=== PATIENT | male | born 1970 | race Caucasian/White ===

== ENCOUNTER 2018-04-12 22:26 | Observation (INO) | payer OTHER, SELFPAY ==
[2018-04-12 22:27] VITALS: BP 163/109; PULSE 95; RESP 18; TEMP 36.4; O2SAT 97; BMI 30.9
--- NOTE | 2018-04-12 22:35 | EKG12_ITS ---
Test Reason : CP/OTHER Blood Pressure : / mmHG Vent. Rate : 089 BPM Atrial Rate : 089 BPM P-R Int : 132 ms QRS Dur : 090 ms QT Int : 366 ms P-R-T Axes : 035 044 023 degrees QTc Int : 445 ms Normal sinus rhythm Normal ECG Confirmed by ELIZABETH SALGADO, SHAMA ([id number]), assignment editor YANI CUEVA ([id number]) on 04/17/2018 9:04:56 AM Referred By: DR GIVENS Confirmed By:SHAMA JOHNSON MD
--- NOTE | 2018-04-12 22:35 | RAD_ITS ---
STUDY: X-RAY CHEST REASON FOR EXAM: Male, 47 years old. Dizziness TECHNIQUE: Single AP portable view of the chest. COMPARISON: None. FINDINGS: EKG leads overlie the chest The lungs are clear and expanded. There is no demonstrated pleural abnormality. Normal size heart. Normal mediastinum and teto. Normal visualized pulmonary arteries. Normal visualized aortic arch and descending thoracic aorta. Normal visualized thoracic spine. Normal visualized ribs, clavicles, and shoulders. There is no demonstrated abnormality of the visualized soft tissue structures of the upper abdomen. RAD/Chest 1 View (Portable) IMPRESSION: Normal x-ray examination of the chest. Electronically Signed: Martin Dais MD at 23:37 EST , Service support ,
[2018-04-12 22:36] VITALS: O2SAT 95
[2018-04-12 22:51] VITALS: BP 146/95; PULSE 88; RESP 11; O2SAT 97
[2018-04-12 22:54] LABS: Absolute Neutrophil Count 7.7 X10^3/uL (2.0-7.7); Basophil# 0.05 X10^3/uL; Basophil% 0.4 % (0-1); Eosinophil# 0.48 X10^3/uL; Eosinophils% 4.1 % (0-5); Hematocrit 45.3 % (40-54); Hemoglobin 16.4 g/dl (13.0-16.5); Lymphocyte % 20.7 % (19-41); Mean Corp Hgb Conc 36.2 g/gl (32-36); Mean Corpuscular Hgb 30.9 pg (27.0-32.0); Mean Corpuscular Volume 85.3 fL (80-94); Mean Platelet Vol. 9.4 fl (6.2-12.0); Monocyte# 0.95 X10^3/uL; Monocyte% 8.2 % (0-10); Neutrophil # 7.68 X10^3/uL (2.7-7.7); Neutrophil % 66.1 % (47-70); Platelet Count 278 K/mm3 (150-450); RBC Distribution Width CV 12.5 % (11.6-14.6); RBC Distribution Width SD 38.7 fl (35.1-43.9); Red Blood Count 5.31 M/mm3 (4.6-6.2); White Blood Count 11.6 K/mm3 (4.4-11.0)
[2018-04-12 22:55] LABS: POSITIVE COUNT NO; POSITIVE DIFFERENTIAL NO; POSITIVE MORPHOLOGY NO
[2018-04-12 22:58] LABS: International Normalized Ratio 0.9; Prothrombin Time (Protime)PT. 12.1 SECONDS (11.7-14.9)
[2018-04-12 23:09] LABS: Anion Gap 9 (5-15); BUN 10 mg/dL (7-18); BUN/Creat Ratio 9.8 RATIO (10-20); Calcium,Total 8.4 mg/dL (8.5-10.1); Chloride 107 mmol/L (98-107); Creatinine, Serum 1.02 mg/dL (0.70-1.30); EST Glomerular Filtration Rate 83 mL/min (>60); Est Glom Filt Rate - Afr Amer 100 mL/min (>60); Estimated Creatinine Clearance 86.62 ml/min; Glucose 107 mg/dL (74-106); Potassium 3.7 mmol/L (3.5-5.1); Sodium Level 139 mmol/L (136-145)
[2018-04-12] MEDS: Aspirin 81 MG TAB.CHEW 324 MG PO (23:26)
[2018-04-12 23:27] VITALS: BP 160/93; PULSE 89
[2018-04-12 23:48] VITALS: BP 148/94; PULSE 82; RESP 17; O2SAT 99
--- NOTE | 2018-04-12 23:49 | ED.VISSUMM ---
- ER Visit Summary Date of Service: 04/12/18 Chief Complaint: Chest pain History of Present Illness: The patient is a 47 M who presents with chest pain. This began about 5 hours ago. It began at rest. He describes it as tightness or pressure. He states it felt like someone was sitting on him. There is only moderate in severity. No exacerbating or relieving factors. He also complains of lightheadedness all day today. He has had shortness of breath nausea and some blurred vision. He notes that he has had chest tightness before but always just attributed it to over exertion and her elevated blood pressure. He has never really had the other associated symptoms such as shortness of breath nausea or lightheadedness. He had some congestion last week but this is since resolved. No other recent illness. He denies medical history such as diabetes hypertension hyperlipidemia. There is not a family history of coronary disease at age less than 55. He does chew tobacco but does not smoke. Physical Examination: Afebrile blood pressure 146/95 vitals otherwise unremarkable Moist mucous membranes Heart regular rate and rhythm Lungs are clear Abdomen soft Extremities nontender palpable symmetric radial pulses Alert Test Results: EKG shows normal sinus rhythm at a rate of 89. Chest x-ray normal. Labs notable for white blood cell count 11.6. Normal INR. Negative troponin. Emergency Department Course and Treatment: Patient was given an aspirin here. He was given sublingual nitroglycerin without change in symptoms but did develop a headache. His RAZ risk score is 0. Heart score is 3. However I am concerned given the somewhat classic description of symptoms with chest pressure shortness of breath nausea lightheadedness. I feel he should undergo serial enzymes and stress testing. Patient to be discussed with the hospitalist and admitted. Treatment Plan: [] Disposition: Admit Impression: Chest pain This note was generated with [employer] dictation software. It may contain incorrect words, spelling, and punctuation that were not noted in review of the chart prior to signing ED Disposition - Plan for ED Patient: Referrals: Gerry Atkins MD [Primary Care Provider] -
--- NOTE | 2018-04-12 23:51 | PCM.HP.STD ---
Problem List (1) Vertigo Status: Acute (2) Chest pain Status: Acute (3) Tobacco abuse Status: Chronic (4) Alcohol abuse Status: Acute History of Present Illness Date of Admission: 04/12/18 Chief Complaint: vertigo The patient is a 47 year old M with a significant history of tobacco abuse; and hypertension who presented because of 1 day history of persistence of vertigo. His symptoms started on the morning of presentation. Associated with symptoms is nausea without vomiting. His vertigo is not positional. On the evening of the same day of presentation patient had episodic mild substernal chest pain that he rates as 1 out of 10. He described his pain as an annoying pressure and tightness. His pain was nonradiating. There was no alleviating or aggravating factors to his pain. Associated with his chest pain is a warm sensation. At the emergency department he was given nitroglycerin which did not help the pain but gave him headache. Some hours after his chest pain started the patient's developed double vision. Further he reported that his told him he was having slurred speech. At the emergency department patient was given a full dose of aspirin. He reported that about 10 years ago he had a stress test at [place], [place]. He does not know the results of the stress test. Patient reported about a week ago he had cold-like symptoms of nasal congestion. He denies any hearing loss or tinnitus. Past Medical History Past Medical History (Chronic Problems): Chronic Problems (Last Updated 04/13/18 @ 02:16 by Marin Carlson MD) Tobacco abuse (Chronic) Medical History: Medical History (Last Updated 04/13/18 @ 02:16 by Marin Carlson MD) HTN (hypertension) I10 Allergies No Known Allergies Allergy (Verified 04/12/18 22:30) Home Medications: Ambulatory Orders Medication Instructions Recorded No Known/Unobtainable [No Known 12/21/16 Home Medications] Surgical History: - - Kidney stone removal Lives: Spouse/ Significant Other Smoking Status: Current every day smoker Tobacco Use: Chew Alcohol: Heavy - *Family History Maternal History Items: Heart Disease - His maternal grandfather had heart attack when he was about 60. His uncle had heart attack at 43, Hypertension - Grandmother, Stroke - His mother had about 5 strokes Paternal History Items: Cancer Review of Systems Constitutional: Denies: Chills, Fever, Weight Change Eyes: Reports: Double vision HEENT: Denies: Head Aches, Sinus Congestion, Sinus Drainage Cardiovascular: Reports: Chest Pain, Heaviness. Denies: Palpitations Respiratory: Denies: Cough, Shortness of breath at rest, Sputum production Gastrointestinal: Reports: Nausea. Denies: Abdominal Pain, Vomiting Genitourinary: Denies: Dysuria Musculoskeletal: Denies: Joint Pain, Joint Tenderness Skin: Denies: Rash, Wounds Neurological: Reports: Slurred speech. Denies: Focal weakness, Numbness, Tingling Psychiatric: Denies: Anxiety, Depression, Homicidal Ideations, Suicidal Ideations Hematologic/ Lymphatic: Denies: Easy Bruising, Easy Bleeding VTE Information - Inpt Only VTE Present on Admission: No VTE Mechan Device Prophylaxis: None VTE Pharm Prophylaxis ordered?: Yes Patient Problems: Active and Suspected Problems (Last Updated 04/13/18 @ 02:16 by Marin Carlson MD) Vertigo (Acute) Chest pain (Acute) Alcohol abuse (Acute) - Physical Exam General: Alert, Oriented x3, Cooperative HEENT: Atraumatic, PERRLA, EOMI, Normocephalic Neck: Supple, No JVD, Negative Carotid Bruits Lungs: Clear to auscultation, Normal air movement Cardiovascular: Regular rate, No murmurs Abdomen: Bowel Sounds Present, Soft, Non Tender Extremities: No edema, Capillary Refill Less than 3 Seconds Skin: No rashes, No breakdown Musculoskeletal: No Tenderness to Palpation of Joints or Extremities Neurological: Cranial nerves II-XII grossly intact, - - Lookout Hallpike maneuver with no nystagmus but with vertigo. Psych/Mental Status: Normal Affect, Appropriate Vital Signs Temp Pulse Resp BP Pulse Ox 97.6 F L 82 17 148/94 H 99 04/12/18 22:27 04/12/18 23:48 04/12/18 23:48 04/12/18 23:48 04/12/18 23:48 Oxygen Delivery Method Room Air Weight: 92.079 kg Body Mass Index (BMI) 30.9 Laboratory Tests Past 24 Hrs 04/12/18 04/12/18 04/12/18 22:44 22:44 22:44 WBC 11.6 H RBC 5.31 Hgb 16.4 Hct 45.3 MCV 85.3 MCH 30.9 MCHC 36.2 H RDW 12.5 RDW Differential 38.7 Plt Count 278 MPV 9.4 Immature Gran % (Auto) 0.500 Neut % (Auto) 66.1 Lymph % (Auto) 20.7 [place] % (Auto) 8.2 Eos % (Auto) 4.1 Baso % (Auto) 0.4 Absolute Neuts (auto) 7.7 Absolute Lymphs (auto) 2.40 Total Counted Not Reportable PT 12.1 INR 0.9 Sodium 139 Potassium 3.7 Chloride 107 Carbon Dioxide 23.0 Anion Gap 9 BUN 10 Creatinine 1.02 Estim Creat Clear Calc 86.62 Est GFR (MDRD) Af Amer 100 Est GFR (MDRD) Non-Af 83 BUN/Creatinine Ratio 9.8 L Glucose 107 H Calcium 8.4 L Troponin I < 0.015 Assessment/Plan All Active Problems (Last Updated 04/13/18 @ 02:16 by Marin Carlson MD) Vertigo (Acute) Chest pain (Acute) Alcohol abuse (Acute) The patient is a 47 year old M with a significant history of tobacco abuse; and hypertension with Vertigo; nausea; chest pain and a prior episode of nasal congestion. Vertigo With his symptoms of nasal congestion a week ago his vertigo is likely viral vestibular neuritis. Other different diagnosis include BPPV or posterior circulation stroke. Independent review of CT of the head showed no acute intracranial pathology. NINDS NIH Scale was 0 -Check Hba1c, Lipid level Physical therapy, occupational therapy and speech therapy to work with patient. N.p.o. for stress test Daily aspirin. High intensity statin Lipid profile and A1c ordered. Permissive hypertension. Control blood pressure with labetalol for systolic blood pressure of more than 220 or diastolic blood pressure of more than 120. 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 Echocardiogram ordered. Meclizine as needed. Chest pain Admit to a monitored bed on PCU CXR independently reviewed confirms no acute cardiopulmonary process. EKG independently reviewed confirms normal sinus rhythm Received ASA 324mg at the ED ASA 81 mg p.o. daily SL NTG 0.4 mg prn as needed for chest pain We will check lipid panel. High intensity statin x1 dose ordered. 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 On permissive hypertension per stroke protocol. Admittedly, his blood pressure would have been higher than on presentation for stroke. Nevertheless because stroke has to be ruled out completely we will not do aggressive blood pressure control at this time. Consider long-term blood pressure management. Trend blood pressures. Tobacco abuse: Chew tobacco. Counseled Decline nicotine patch because he does not think he will withdrawal while in the hospital. Alcohol dependence. Patient drinks 4 glasses of whiskey a day. His last drink was on the same day of admission where he took [address] on seizure protocol with multivitamins, thiamine and Ativan as needed. Alcohol level was ordered. DVT prophylaxis Heparin ordered. Code Visit OBSV E&M: 50570 Initial observation care L3
--- NOTE | 2018-04-12 23:52 | ED.DCSUM_ITS ---
- ER Visit Summary Date of Service: 04/12/18 Chief Complaint: Chest pain History of Present Illness: The patient is a 47 M who presents with chest pain. This began about 5 hours ago. It began at rest. He describes it as tightness or pressure. He states it felt like someone was sitting on him. There is only moderate in severity. No exacerbating or relieving factors. He also complains of lightheadedness all day today. He has had shortness of breath nausea and some blurred vision. He notes that he has had chest tightness before but always just attributed it to over exertion and her elevated blood pressure. He has never really had the other associated symptoms such as shortness of breath nausea or lightheadedness. He had some congestion last week but this is since resolved. No other recent illness. He denies medical history such as diabetes hypertension hyperlipidemia. There is not a family history of coronary disease at age less than 55. He does chew tobacco but does not smoke. Physical Examination: Afebrile blood pressure 146/95 vitals otherwise unremarka ble Moist mucous membranes Heart regular rate and rhythm Lungs are clear Abdomen soft Extremities nontender palpable symmetric radial pulses Alert Test Results: EKG shows normal sinus rhythm at a rate of 89. Chest x-ray normal. Labs notable for white blood cell count 11.6. Normal INR. Negative troponin. Emergency Department Course and Treatment: Patient was given an aspirin here. He was given sublingual nitroglycerin without change in symptoms but did develop a headache. His RAZ risk score is 0. Heart score is 3. However I am concerned given the somewhat classic description of symptoms with chest pressure shortness of breath nausea lightheadedness. I feel he should undergo serial enzymes and stress testing. Patient to be discussed with the hospitalist and admitted. Treatment Plan: [] Disposition: Admit Impression: Chest pain This note was generated with [employer] dictation software. It may contain incorrect words, spelling, and punctuation that were not noted in review of the chart prior to signing ED Disposition - Plan for ED Patient: Referrals: Gerry Atkins MD [Primary Care Provider] -
[2018-04-13] VITALS (9 sets, daily range): BP systolic 136–151; BP diastolic 82–93; PULSE 66–80; RESP 11–18; TEMP 36.6–37; O2SAT 93–98; BMI 31.7
--- NOTE | 2018-04-13 00:56 | MRI_ITS ---
STUDY: MRI BRAIN WITHOUT CONTRAST REASON FOR EXAM: Male, 47 years old. Vertigo and blurred vision. TECHNIQUE: Standardized multiplanar fat and water weighted pulse sequences were obtained. COMPARISON: CT of the head dated April 13, 2018. FINDINGS: Normal size of the ventricles and extra-axial spaces for the patient's age. Normal white matter tracts of the supratentorial brain. There is no evidence for recent intracranial ischemia or other cause of cytotoxic edema on diffusion weighted imaging (DWI). Normal T2* images of the brain without demonstrated susceptibility artifact. There is no demonstrated hemosiderin stain. Normal bilateral basal ganglia. Normal thalami. There is no extra-axial fluid accumulation. Normal flow voids within the major intracranial circulation suggesting patency by spin echo criteria. Normal sella turcica, pituitary gland, infundibular stalk, optic chiasm and hypothalamus. Normal tectal plate and pineal gland. Normal midbrain, edward and medulla. Normal cerebellum. Normal basal cisterns. Normal bilateral temporal bones. Normal bilateral internal auditory canals. No demonstrated orbital abnormality, within the constraints of a routine brain study. There are multiple mucous retention cysts within bilateral maxillary sinuses. There is a opacification of several ethmoid sinuses. There is moderate deviation of nasal septum towards the left. Normal calvarium and skull base. Normal visualized soft tissue structures. Normal visualized upper cervical spine. MRI/Brain without Contrast IMPRESSION: 1. No MRI evidence for acute infarct. 2. Moderately severe paranasal sinus disease. Electronically Signed: María Kirkland MD at 11:43 EST , Service support ,
--- NOTE | 2018-04-13 00:56 | MRI_ITS ---
STUDY: MRA NECK WITH AND WITHOUT CONTRAST REASON FOR EXAM: Male, 47 years old. Chest pressure and blurred vision. TECHNIQUE: 3-D gjkb-ra-seavwz (TOF) imaging was performed in an 1.5 T MRI scanner. 10 ml of Gadavist was administered for the contrast enhanced images. COMPARISON: Prior comparison studies are not available for review at this time. FINDINGS: RIGHT CAROTID ARTERIES: Normal right common carotid artery (CCA). There is mild atherosclerotic plaque formation with minimal narrowing of the right carotid bulb. There is a motion artifact at the carotid bulb on the unenhanced images this resolves after intravenous administration of contrast.. Normal origin of the right internal carotid (ICA) artery without a hemodynamically significant stenosis. There is motion artifact at the proximal and mid internal carotid artery mimicking atherosclerotic disease. This is only identified on the unenhanced images. This resolves after intravenous demonstration of contrast. Normal origin of the right external carotid artery (ECA). LEFT CAROTID ARTERIES: There is general patency of the common carotid artery. There is some motion artifact of the distal common carotid artery on the unenhanced images. This is not visible on the enhanced images.. There is mild atherosclerotic plaque formation with minimal narrowing of the left carotid bulb. Normal origin of the left internal carotid (ICA) artery without a hemodynamically significant stenosis. Normal visualized cervical portion of the left internal carotid artery. Normal origin of the left external carotid artery (ECA). VERTEBRAL ARTERIES: Normal antegrade flow within the bilateral vertebral artery without a hemodynamically significant stenosis. MRI/MRA Neck WITH and W/O Contrast IMPRESSION: No MRI evidence for hemodynamically significant stenosis, thrombosis or dissection. Electronically Signed: María Kirkland MD at 12:00 EST , Service support ,
--- NOTE | 2018-04-13 00:56 | ECHOD_ITS ---
Reason For Study: TIA/CVA Procedure This was a 2D Doppler, Color Flow transthoracic echocardiogram. Exam performed in department. Left Ventricle Normal LV size. Left ventricular systolic function is normal. The estimated ejection fraction is 60 %. No evidence for diastolic dysfunction. No regional wall motion abnormalities noted. Right Ventricle Normal RV size. Normal systolic function. Atria Normal left atrium. Normal right atrium. Bubble contrast study negative for right to left interatrial shunt. Mitral Valve Normal mitral valve. Tricuspid Valve Normal tricuspid valve. Aortic Valve Normal aortic valve. Pulmonic Valve Normal pulmonic valve. Great Vessels Normal aortic root. The pulmonary artery is normal size. Normal inferior vena cava. Pericardium/Pleural No pericardial effusion. Medication Performed a rapid injection of agitated mix of 9 cc saline and 1cc air to assess for atrial septal defect. MMode/2D Measurements & Calculations LVIDd: 4.8 cm IVSd: 0.97 cm Ao root diam: 3.1 cm LVIDs: 3.2 cm LVPWd: 1.1 cm RVDd: 3.5 cm FS: 33.7 % LAV(MOD-bp): 32.4 ml LVAd ap4: 28.5 cm2 SV(MOD-sp4): 46.9 ml LAV(MOD-bp) Indexed: 15.6 ml/m2 EDV(MOD-sp4): 78.3 ml LAV(MOD-sp2): 37.3 ml EDV(sp4-el): 79.8 ml LAV(MOD-sp4): 27.0 ml LVAs ap4: 15.7 cm2 ESV(MOD-sp4): 31.4 ml ESV(sp4-el): 31.6 ml EF(MOD-sp4): 59.9 % EF(sp4-el): 60.4 % SV(sp4-el): 48.2 ml LA A4 area: 13.0 cm2 LA dimension(2D): 3.1 cm RA A4 area: 16.5 cm2 Time Measurements MV dec time: 0.23 sec Doppler Measurements & Calculations MV E max cesario: 66.9 cm/sec Lat Peak E' Cesario: 11.4 cm/sec Med Peak E' Cesario: 10.7 cm/sec MV A max cesario: 57.8 cm/sec E/E' lat: 5.9 E/E' med: 6.2 MV E/A: 1.2 Ao V2 max: 103.2 cm/sec LV V1 max: 98.9 cm/sec PA V2 max: 121.6 cm/sec Ao max P.3 mmHg LV V1 max P.9 mmHg Interpretation Summary Normal LV size. Left ventricular systolic function is normal. The estimated ejection fraction is 60 %. No evidence for diastolic dysfunction. Bubble contrast study negative for right to left interatrial shunt. The global longitudinal strain = -18.4 % (normal). Ordering Physician: Marin Carlson Referring Physician: MICKEY WINN Performed By: Kelsi Leonardo RDCS
--- NOTE | 2018-04-13 00:56 | EKG12_ITS ---
Test Reason : Blood Pressure : / mmHG Vent. Rate : 067 BPM Atrial Rate : 067 BPM P-R Int : 134 ms QRS Dur : 086 ms QT Int : 396 ms P-R-T Axes : 032 032 012 degrees QTc Int : 418 ms Normal sinus rhythm Normal ECG When compared with ECG of 12-APR-2018 22:39, MANUAL COMPARISON REQUIRED, DATA IS UNCONFIRMED Confirmed by ELIZABETH SALGADO, SHAMA ([id number]), editor continuity and script YANI CUEVA ([id number]) on 04/16/2018 8:51:53 AM Referred By: Confirmed By:SHAMA JOHNSON MD
--- NOTE | 2018-04-13 00:56 | MRI_ITS ---
STUDY: MRA OF THE HEAD WITHOUT CONTRAST REASON FOR EXAM: Male, 47 years old. Blurred vision. TECHNIQUE: 3-D tkai-bo-vazdqg (TOF) imaging was performed with MIPs. The study was performed unenhanced. COMPARISON: None. FINDINGS: Normal bilateral petrous carotid arteries. Normal right cavernous carotid artery with a normal supraclinoid bifurcation. Normal left cavernous carotid artery with a normal supraclinoid bifurcation. Normal right A1 segments of the anterior cerebral artery. Normal left A1 segments of the anterior cerebral artery. Normal intact anterior communicating artery (ACOM). Normal bilateral A2 segments of the anterior cerebral arteries. Normal right M1 and M2 segments of the middle cerebral arteries, with a normal M1 bifurcation. Normal left M1 and M2 segments of the middle cerebral arteries, with a normal M1 bifurcation. There is non-visualization of the right posterior communicating artery (PCOM). There is non-visualization of the left posterior communicating artery (PCOM). Normal bilateral vertebral arteries. Normal basilar artery with a normal basilar bifurcation. The visualized bilateral superior cerebellar (SCA) arteries are normal. Normal bilateral P1, P2 and visualized P3 segments of the posterior cerebral arteries. There is no demonstrated aneurysm of the [place] of [place]. There is no major vessel occlusion or hemodynamically significant stenosis. There is no demonstrated abnormality of the visualized brain. MRI/MRA Head ONLY without Contrast IMPRESSION: No MRA evidence for hemodynamically significant stenosis or aneurysm. Electronically Signed: María Kirkland MD at 11:37 EST , Service support ,
--- NOTE | 2018-04-13 00:56 | CT_ITS ---
STUDY: CT BRAIN WITHOUT CONTRAST REASON FOR EXAM: Male, 47 years old. Vertigo. RADIATION DOSAGE (If Supplied By Facility): CTDIvol = ( 44.99 ) mGy, DLP = ( 779.24 ) mGycm TECHNIQUE: Transaxial CT imaging of the brain was performed without administration of intravenous contrast material. Multiplanar reformations are submitted for interpretation. Individualized dose optimization techniques were used for this CT. COMPARISON: None. FINDINGS: Normal soft tissue structures. Normal calvarium. Normal size ventricles and extra-axial spaces for the patient's age. Normal white matter tracts of the cerebral hemispheres. Normal basal ganglia and thalami. Normal brainstem. Normal cerebellum. There is no intracranial hemorrhage. There are no findings of an acute ischemic infarction. There are multiple mucous retention cysts within the maxillary sinuses. There is deviation of the nasal septum towards the left. CT/Brain/Head without Contrast IMPRESSION: No CT evidence of acute intracranial hemorrhage. Electronically Signed: María Kirkland MD at 2:06 EST , Service support ,
[2018-04-13] MEDS: Atorvastatin Calcium 80 MG Tablet PO (01:32)
[2018-04-13 02:16] LABS: Alcohol, Blood (Medical)-Serum < 3.0 mg/dL
[2018-04-13] MEDS: Aspirin E.C. 81 MG Tablet PO (04:53)
[2018-04-13 05:42] LABS: Cholesterol 227 mg/dL (200); High Density Lipoprotein 35 mg/dL; Triglycerides 431 mg/dL
[2018-04-13 07:56] LABS: Hemoglobin A1c 5.6 % (4.2-6.3)
[2018-04-13] MEDS: Thiamine Hydrochloride 100 MG Tablet PO (10:56)
[2018-04-13] MEDS: Folic Acid 1 MG Tablet PO (10:56)
[2018-04-13] MEDS: Multivitamins,Ther W-Minerals Tablet 1 TABLET PO (10:56)
--- NOTE | 2018-04-13 11:17 | STRESSREP_ITS ---
Stress Test Report Exercise stress myocardial perfusion stress test. 47-year-old man with a history of chest pain. Medications: Aspirin, folic acid. Stress protocol: Resting EKG demonstrates normal sinus rhythm with a rate of 64 bpm normal intervals are noted resting blood pressure 126/78 mmHg. The patient exercised according to regular Luis Antonio protocol for a total duration of 9 minutes completing stage III of the Luis Antonio protocol the maximum heart rate attained was 164 bpm which was 94% of maximum predicted heart rate the maximum workload was 10.1 meta bolic equivalents. At rest there were no ST or T wave changes noted suggest ischemia peak exercise upsloping ST changes only were noted with normally the criteria for ischemia. The resting blood pressure 126/78 with a peak blood pressure of 200/68 rate pressure product was 32,800. Myocardial perfusion protocol. A 14.5 mCi of technetium 99m sestamibi was injected at rest. Patient exercised according to regular Luis Antonio protocol. At peak exercise 44.3 mCi of technetium 99m sestamibi was injected stress images were obtained stress and rest images were reconstructed and compared in the short axis vertical long and horizontal long axis. Gated images were also obtained Perfusion SPECT analysis: Review of the stress images demonstrate normal uptake of tracer noted in all areas of the myocardium. The resting images similarly demonstrated normal uptake of tracer noted in all areas of the myocardium. No areas of reversibility are noted suggest ischemia no previous infarct is noted. Gated SPECT analysis: The gated ejection fraction is noted to be 70%. Conclusion: Normal exercise myocardial perfusion stress test at a high workload. Preserved ejection fraction. Good functional capacity.
[2018-04-13] MEDS: Acetaminophen 325 MG Tablet 650 MG PO (12:24)
--- NOTE | 2018-04-13 13:07 | DCINST_ITS ---
- Discharge Diagnoses Current Active Problems: Current Active and Chronic Problems (Last Updated 04/13/18 @ 02:16 by Marin Carlson MD) Vertigo (Acute) Chest pain (Acute) Tobacco abuse (Chronic) Alcohol abuse (Acute) You will use the following diet at home:: Cardiac Discharge Activity: Return to Normal Activity Allergies/Adverse Reactions: Allergies No Known Allergies Allergy (Verified 04/12/18 22:30) Medications to take at Discharge Amlodipine [Norvasc] 10 mg PO DAILY #90 tablet 04/13/18 Aspirin E.C. [Ecotrin] 81 mg PO DAILY@0800 #90 tablet 04/13/18 Atorvastatin Calcium [Lipitor] 80 mg PO QHS #90 tablet 04/13/18 Meclizine HCl [Antivert] 12.5 mg PO TID PRN PRN #30 tablet 04/13/18 The following prescriptions were given: Amlodipine [Norvasc] 10 mg PO DAILY #90 tablet Aspirin E.C. [Ecotrin] 81 mg PO DAILY@0800 #90 tablet Atorvastatin Calcium [Lipitor] 80 mg PO QHS #90 tablet Meclizine HCl [Antivert] 12.5 mg PO TID PRN PRN #30 tablet PRN Reason: Vertigo Primary Care Physician: Gerry Atkins MD [Primary Care Provider] - Please follow up with your Primary Care Physician in: in 1 week Test Results: Test results from this visit will be discussed in further detail at your follow- up appointment, if applicable. Proposed Discharge Date: 04/13/18
--- NOTE | 2018-04-13 13:07 | PCM.DC.SUM ---
Discharge Date and Diagnosis - Problem List Patient Problems: Active and Suspected Problems (Last Updated 04/13/18 @ 02:16 by Marin Carlson MD) Vertigo (Acute) Chest pain (Acute) Alcohol abuse (Acute) Date of Admission: 04/12/18 Date of Discharge: 04/13/18 - Primary Discharge Diagnosis Active and Suspected Problems (Last Updated 04/13/18 @ 02:16 by Marin Carlson MD) Vertigo (Acute) Chest pain (Acute) Alcohol abuse (Acute) - Secondary Discharge Diagnosis Chronic Problems (Last Updated 04/13/18 @ 02:16 by Marin Carlson MD) Tobacco abuse (Chronic) Hospital Course and Treatment Imaging Results: Clinical Impression(s) from Imaging Studies Chest X-Ray 04/12/18 22:35 IMPRESSION: Normal x-ray examination of the chest. Electronically Signed: Martin Dias MD at 23:37 EST , Service support , Brain CT 04/13/18 00:56 IMPRESSION: No CT evidence of acute intracranial hemorrhage. Electronically Signed: María Kirkland MD at 2:06 EST , Service support , Brain MRI 04/13/18 00:56 IMPRESSION: 1. No MRI evidence for acute infarct. 2. Moderately severe paranasal sinus disease. Electronically Signed: María Kirkland MD at 11:43 EST , Service support , Head MRA 04/13/18 00:56 IMPRESSION: No MRA evidence for hemodynamically significant stenosis or aneurysm. Electronically Signed: María Kirkland MD at 11:37 EST , Service support , Neck MRA 04/13/18 00:56 IMPRESSION: No MRI evidence for hemodynamically significant stenosis, thrombosis or dissection. Electronically Signed: María Kirkland MD at 12:00 EST , Service support , Summary of Care Provided: The patient is a 47 year old M with past medical history cigar for hypertension currently not on any medication, tobacco dependence who presented with acute vertigo and chest pain 1. Acute vertigo this was thought to be secondary to viral vestibular neuritis. Patient was admitted to monitored bed treated symptomatically. Underwent subsequent evaluation with MRI MRA of the head and neck which was negative for acute CVA 2. Chest pain: Placed on a monitored bed [place] ruled out with serial cardiac enzymes subsequently underwent a nuclear stress test which was negative for stress-induced ischemia 3. Hypertension patient was apparently not on any medications prior to coming in prescription was written for amlodipine on discharge and instructed to be compliant with therapy 4. Dyslipidemia (new diagnosis). Patient was discharged home on atorvastatin 80 mg daily 5. Chronic alcohol use counseled on cessation placed on Librium for DT precautions 6. Tobacco dependence counseled on cessation, offered nicotine patch for tobacco cravings Patient Problems: Active and Suspected Problems (Last Updated 04/13/18 @ 02:16 by Marin Carlson MD) Vertigo (Acute) Chest pain (Acute) Alcohol abuse (Acute) - Physical Exam Vital Signs Temp Pulse Resp BP Pulse Ox 98.6 F 80 17 151/93 H 96 04/13/18 10:46 04/13/18 10:58 04/13/18 10:46 04/13/18 10:46 04/13/18 11:00 Oxygen Delivery Method Room Air Weight: 94.6 kg Body Mass Index (BMI) 31.7 Intake and Output for Last 24 Hours 04/11/18 04/12/18 04/13/18 23:59 23:59 23:59 Intake Total 250 / 250 Balance 250 / 250 Laboratory Tests Past 24 Hrs 04/12/18 04/12/18 04/12/18 22:44 22:44 22:44 WBC 11.6 H RBC 5.31 Hgb 16.4 Hct 45.3 MCV 85.3 MCH 30.9 MCHC 36.2 H RDW 12.5 RDW Differential 38.7 Plt Count 278 MPV 9.4 Immature Gran % (Auto) 0.500 Neut % (Auto) 66.1 Lymph % (Auto) 20.7 Dickens % (Auto) 8.2 Eos % (Auto) 4.1 Baso % (Auto) 0.4 Absolute Neuts (auto) 7.7 Absolute Lymphs (auto) 2.40 Total Counted Not Reportable PT 12.1 INR 0.9 Sodium 139 Potassium 3.7 Chloride 107 Carbon Dioxide 23.0 Anion Gap 9 BUN 10 Creatinine 1.02 Estim Creat Clear Calc 86.62 Est GFR (MDRD) Af Amer 100 Est GFR (MDRD) Non-Af 83 BUN/Creatinine Ratio 9.8 L Glucose 107 H Hemoglobin A1c Calcium 8.4 L Troponin I < 0.015 Triglycerides Cholesterol LDL Cholesterol VLDL Cholesterol HDL Cholesterol Ethyl Alcohol 04/13/18 04/13/18 04/13/18 01:32 01:32 04:48 WBC RBC Hgb Hct MCV MCH MCHC RDW RDW Differential Plt Count MPV Immature Gran % (Auto) Neut % (Auto) Lymph % (Auto) Dickens % (Auto) Eos % (Auto) Baso % (Auto) Absolute Neuts (auto) Absolute Lymphs (auto) Total Counted PT INR Sodium Potassium Chloride Carbon Dioxide Anion Gap BUN Creatinine Estim Creat Clear Calc Est GFR (MDRD) Af Amer Est GFR (MDRD) Non-Af BUN/Creatinine Ratio Glucose Hemoglobin A1c Calcium Troponin I < 0.015 < 0.015 Triglycerides 431 H Cholesterol 227 H LDL Cholesterol TNP VLDL Cholesterol TNP HDL Cholesterol 35 L Ethyl Alcohol < 3.0 04/13/18 04:48 WBC RBC Hgb Hct MCV MCH MCHC RDW RDW Differential Plt Count MPV Immature Gran % (Auto) Neut % (Auto) Lymph % (Auto) Dickens % (Auto) Eos % (Auto) Baso % (Auto) Absolute Neuts (auto) Absolute Lymphs (auto) Total Counted PT INR Sodium Potassium Chloride Carbon Dioxide Anion Gap BUN Creatinine Estim Creat Clear Calc Est GFR (MDRD) Af Amer Est GFR (MDRD) Non-Af BUN/Creatinine Ratio Glucose Hemoglobin A1c 5.6 Calcium Troponin I Triglycerides Cholesterol LDL Cholesterol VLDL Cholesterol HDL Cholesterol Ethyl Alcohol Discharge Activity: Return to Normal Activity Home Medications: Medications to take at Discharge Amlodipine [Norvasc] 10 mg PO DAILY #90 tablet 04/13/18 Aspirin E.C. [Ecotrin] 81 mg PO DAILY@0800 #90 tablet 04/13/18 Atorvastatin Calcium [Lipitor] 80 mg PO QHS #90 tablet 04/13/18 Meclizine HCl [Antivert] 12.5 mg PO TID PRN PRN #30 tablet 04/13/18 Following Prescrptions Were Given to Patient: Amlodipine [Norvasc] 10 mg PO DAILY #90 tablet Aspirin E.C. [Ecotrin] 81 mg PO DAILY@0800 #90 tablet Atorvastatin Calcium [Lipitor] 80 mg PO QHS #90 tablet Meclizine HCl [Antivert] 12.5 mg PO TID PRN PRN #30 tablet PRN Reason: Vertigo Primary Care Physician: Gerry Atkins MD [Primary Care Provider] - Please follow up with your Primary Care Physician in: in 1 week Disposition: Home Minutes spent on discharge:: 35 Patient Condition:: Stable Medical Necessity - Tobacco Use Smoking Status: Current every day smoker Tobacco Use: Chew Meaningful Use Info Meaningful Use Diagnoses (Choose all that apply): None applicable Code Visit OBSV E&M: 35755 Observation care discharge
--- NOTE | 2018-04-13 13:10 | DS.PCM_ITS ---
Discharge Date and Diagnosis - Problem List Patient Problems: Active and Suspected Problems (Last Updated 04/13/18 @ 02:16 by Marin Carlson MD) Vertigo (Acute) Chest pain (Acute) Alcohol abuse (Acute) Date of Admission: 04/12/18 Date of Discharge: 04/13/18 - Primary Discharge Diagnosis Active and Suspected Problems (Last Updated 04/13/18 @ 02:16 by Marin Carlson MD) Vertigo (Acute) Chest pain (Acute) Alcohol abuse (Acute) - Secondary Discharge Diagnosis Chronic Problems (Last Updated 04/13/18 @ 02:16 by Marin Carlson MD) Tobacco abuse (Chronic) Hospital Course and Treatment Imaging Results: Clinical Impression(s) from Imaging Studies Chest X-Ray 04/12/18 22:35 IMPRESSION: Normal x-ray examination of the chest. Electronically Signed: Martin Dias MD at 23:37 EST , Service support , Brain CT 04/13/18 00:56 IMPRESSION: No CT evidence of acute intracranial hemorrhage. Electronically Signed: María Kirkland MD at 2:06 EST , Service support , Brain MRI 04/13/18 00:56 IMPRESSION: 1. No MRI evidence for acute infarct. 2. Moderately severe paranasal sinus disease. Electronically Signed: María Kirkland MD at 11:43 EST , Service support , Head MRA 04/13/18 00:56 IMPRESSION: No MRA evidence for hemodynamically significant stenosis or aneurysm. Electronically Signed: María Kirkland MD at 11:37 EST , Service support , Neck MRA 04/13/18 00:56 IMPRESSION: No MRI evidence for hemodynamically significant stenosis, thrombosis or dissection. Electronically Signed: María Kirkland MD at 12:00 EST , Service support , Summary of Care Provided: The patient is a 47 year old M with past medical history cigar for hypertension currently not on any medication, tobacco dependence who presented with acute vertigo and chest pain 1. Acute vertigo this was thought to be secondary to viral vestibular neuritis. Patient was admitted to monitored bed treated symptomatically. Underwent subsequent evaluation with MRI MRA of the head and neck which was negative for acute CVA 2. Chest pain: Placed on a monitored bed [place] ruled out with serial cardiac enzymes subsequently underwent a nuclear stress test which was negative for stress-induced ischemia 3. Hypertension patient was apparently not on any medications prior to coming in prescription was written for amlodipine on discharge and instructed to be compliant with therapy 4. Dyslipidemia (new diagnosis). Patient was discharged home on atorvastatin 80 mg daily 5. Chronic alcohol use counseled on cessation placed on Librium for DT precautions 6. Tobacco dependence counseled on cessation, offered nicotine patch for tobacco cravings Patient Problems: Active and Suspected Problems (Last Updated 04/13/18 @ 02:16 by Marin Carlson MD) Vertigo (Acute) Chest pain (Acute) Alcohol abuse (Acute) - Physical Exam Vital Signs Temp Pulse Resp BP Pulse Ox 98.6 F 80 17 151/93 H 96 04/13/18 10:46 04/13/18 10:58 04/13/18 10:46 04/13/18 10:46 04/13/18 11:00 Oxygen Delivery Method Room Air Weight: 94.6 kg Body Mass Index (BMI) 31.7 Intake and Output for Last 24 Hours 04/11/18 04/12/18 04/13/18 23:59 23:59 23:59 Intake Total 250 / 250 Balance 250 / 250 Laboratory Tests Past 24 Hrs 04/12/18 04/12/18 04/12/18 22:44 22:44 22:44 WBC 11.6 H RBC 5.31 Hgb 16.4 Hct 45.3 MCV 85.3 MCH 30.9 MCHC 36.2 H RDW 12.5 RDW Differential 38.7 Plt Count 278 MPV 9.4 Immature Gran % (Auto) 0.500 Neut % (Auto) 66.1 Lymph % (Auto) 20.7 [place] % (Auto) 8.2 Eos % (Auto) 4.1 Baso % (Auto) 0.4 Absolute Neuts (auto) 7.7 Absolute Lymphs (auto) 2.40 Total Counted Not Reportable PT 12.1 INR 0.9 Sodium 139 Potassium 3.7 Chloride 107 Carbon Dioxide 23.0 Anion Gap 9 BUN 10 Creatinine 1.02 Estim Creat Clear Calc 86.62 Est GFR (MDRD) Af Amer 100 Est GFR (MDRD) Non-Af 83 BUN/Creatinine Ratio 9.8 L Glucose 107 H Hemoglobin A1c Calcium 8.4 L Troponin I < 0.015 Triglycerides Cholesterol LDL Cholesterol VLDL Cholesterol HDL Cholesterol Ethyl Alcohol 04/13/18 04/13/18 04/13/18 01:32 01:32 04:48 WBC RBC Hgb Hct MCV MCH MCHC RDW RDW Differential Plt Count MPV Immature Gran % (Auto) Neut % (Auto) Lymph % (Auto) [place] % (Auto) Eos % (Auto) Baso % (Auto) Absolute Neuts (auto) Absolute Lymphs (auto) Total Counted PT INR Sodium Potassium Chloride Carbon Dioxide Anion Gap BUN Creatinine Estim Creat Clear Calc Est GFR (MDRD) Af Amer Est GFR (MDRD) Non-Af BUN/Creatinine Ratio Glucose Hemoglobin A1c Calcium Troponin I < 0.015 < 0.015 Triglycerides 431 H Cholesterol 227 H LDL Cholesterol TNP VLDL Cholesterol TNP HDL Cholesterol 35 L Ethyl Alcohol < 3.0 04/13/18 04:48 WBC RBC Hgb Hct MCV MCH MCHC RDW RDW Differential Plt Count MPV Immature Gran % (Auto) Neut % (Auto) Lymph % (Auto) [place] % (Auto) Eos % (Auto) Baso % (Auto) Absolute Neuts (auto) Absolute Lymphs (auto) Total Counted PT INR Sodium Potassium Chloride Carbon Dioxide Anion Gap BUN Creatinine Estim Creat Clear Calc Est GFR (MDRD) Af Amer Est GFR (MDRD) Non-Af BUN/Creatinine Ratio Glucose Hemoglobin A1c 5.6 Calcium Troponin I Triglycerides Cholesterol LDL Cholesterol VLDL Cholesterol HDL Cholesterol Ethyl Alcohol Discharge Activity: Return to Normal Activity Home Medications: Medications to take at Discharge Amlodipine [Norvasc] 10 mg PO DAILY #90 tablet 04/13/18 Aspirin E.C. [Ecotrin] 81 mg PO DAILY@0800 #90 tablet 04/13/18 Atorvastatin Calcium [Lipitor] 80 mg PO QHS #90 tablet 04/13/18 Meclizine HCl [Antivert] 12.5 mg PO TID PRN PRN #30 tablet 04/13/18 Following Prescrptions Were Given to Patient: Amlodipine [Norvasc] 10 mg PO DAILY #90 tablet Aspirin E.C. [Ecotrin] 81 mg PO DAILY@0800 #90 tablet Atorvastatin Calcium [Lipitor] 80 mg PO QHS #90 tablet Meclizine HCl [Antivert] 12.5 mg PO TID PRN PRN #30 tablet PRN Reason: Vertigo Primary Care Physician: Gerry Atkins MD [Primary Care Provider] - Please follow up with your Primary Care Physician in: in 1 week Disposition: Home Minutes spent on discharge:: 35 Patient Condition:: Stable Medical Necessity - Tobacco Use Smoking Status: Current every day smoker Tobacco Use: Chew Meaningful Use Info Meaningful Use Diagnoses (Choose all that apply): None applicable Code Visit OBSV E&M: 77756 Observation care discharge
== END 2018-04-13 15:34 | disposition home or self-care (01) ==
LOC: ED 23:14 → PCU 04-13 00:26
PROVIDERS: Admitting Provider Hospitalist; Emergency Provider Emergency Medicine; Family Provider Family Medicine; PCP Family Medicine; Visit Provider Internal Medicine
DX: R07.89 Other chest pain (principal); R06.02 Shortness of breath; H53.8 Other visual disturbances; R42 Dizziness and giddiness; R11.0 Nausea; F17.220 Nicotine dependence, chewing tobacco, uncomplicated; I10 Essential (primary) hypertension; R47.81 Slurred speech; F10.20 Alcohol dependence, uncomplicated
CPT/HCPCS: 36415; 70450; 70544; 70549; 70551; 71045; 78452; 80048; 80061; 80320; 83036; 84484; 85025; 85610; 93005; 93017; 93306; 99218; 99283; A9500; A9585; A4216; G0378; G0480

== ENCOUNTER 2019-01-13 18:56 | Emergency (ER) | payer OTHER, SELFPAY ==
[2018-04-13 10:50] VITALS: BMI 31.7
[2019-01-13 18:57] VITALS: BP 156/105; PULSE 88; RESP 14; TEMP 37.2; O2SAT 97; BMI 33.5
--- NOTE | 2019-01-13 19:45 | CT_ITS ---
STUDY: CT BRAIN WITHOUT CONTRAST REASON FOR EXAM: Male, 48 years old. Trauma RADIATION DOSAGE (If Supplied By Facility): CTDIvol = ( 44.99 ) mGy, DLP = ( 779.24 ) mGycm TECHNIQUE: Transaxial CT imaging of the brain was performed without administration of intravenous contrast material. Individualized dose optimization techniques were used for this CT. COMPARISON: April 13, 2018. FINDINGS: Normal soft tissue structures. Normal calvarium. Normal size ventricles and extra-axial spaces for the patient's age. Normal white matter tracts of the cerebral hemispheres. Normal basal ganglia and thalami. Normal brainstem. Normal cerebellum. There is no intracranial hemorrhage. There are no findings of an acute ischemic infarction. There is mild bilateral maxillary and ethmoid sinus disease.. CT/Brain/Head without Contrast IMPRESSION: Normal unenhanced CT scan of the brain Mild bilateral maxillary and ethmoid sinus disease. Electronically Signed: eRza Pulido MD at 20:14 EST , Service support ,
--- NOTE | 2019-01-13 19:45 | CT_ITS ---
STUDY: CT CHEST WITHOUT CONTRAST REASON FOR EXAM: Male, 48 years old. Trauma RADIATION DOSAGE (If Supplied By Facility): CTDIvol = ( 19.84 ) mGy, DLP = ( 674.17 ) mGycm TECHNIQUE: Transaxial imaging was performed without the administration of intravenous contrast material. Individualized dose optimization techniques were used for this CT. COMPARISON: None. FINDINGS: There is minor atelectasis within the dependent portion of the lungs.. No focal infiltration or pulmonary nodules.. There is no demonstrated pleural abnormality. Heart size is normal. There is minor coronary artery calcification. Normal mediastinum. Normal hilar regions. Normal unenhanced pulmonary arteries. Minor atherosclerotic changes of the aorta without evidence for aneurysm. Normal osseous structures. There is no demonstrated abnormality of the visualized upper abdomen. CT/Chest without Contrast IMPRESSION: Minor atelectasis within the dependent portion of the lungs No significant abnormalities. Electronically Signed: Reza Pulido MD at 20:27 EST , Service support ,
--- NOTE | 2019-01-13 19:45 | CT_ITS ---
STUDY: CT CERVICAL SPINE WITHOUT CONTRAST REASON FOR EXAM: Male, 48 years old. Trauma RADIATION DOSAGE (If Supplied By Facility): CTDIvol = ( 25.09 ) mGy, DLP = ( 505.91 ) mGycm TECHNIQUE: High resolution transaxial imaging was performed without contrast material. Sagittal and coronal images were reconstructed. Individualized dose optimization techniques were used for this CT. COMPARISON: None FINDINGS: Normal craniovertebral junction. Normal anterior atlantoaxial articulation. Normal odontoid process. Decreased cervical lordosis. Normal vertebral bodies and posterior osseous elements. C2-3: Normal endplates. Normal disc height and morphology. Normal central canal and intervertebral neuroforamina. C3-4: Normal endplates. Normal disc height and morphology. Normal central canal and intervertebral neuroforamina. C4-5: Normal endplates. Normal disc height and morphology. Normal central canal and intervertebral neuroforamina. C5-6: Narrowed disc space and endplate spurring. Small central disc protrusion. Mild narrowing the central canal and impingement upon the cord. Mild bilateral neuroforaminal stenosis secondary to bony hypertrophy. C6-7: Narrowed disc space and mild endplate spurring. No focal disc protrusion.. Normal central canal and intervertebral neuroforamina. C7-T1: Normal endplates. Normal disc height and morphology. Normal central canal and intervertebral neuroforamina. Normal visualized soft tissue structures. CT/Spine Cervical without Contras IMPRESSION: Mild spondylosis most pronounced at C5-6 No acute fracture or subluxation Electronically Signed: Reza Pulido MD at 20:23 EST , Service support ,
--- NOTE | 2019-01-13 20:00 | RAD_ITS ---
STUDY: X-RAY - LEFT SHOULDER REASON FOR EXAM: Male, 48 years old. Trauma TECHNIQUE: 4 view(s) of the shoulder. COMPARISON: None. FINDINGS: Normal glenohumeral articulation. Normal acromioclavicular joint. Normal acromion. No evidence for acute fracture or dislocation. Small bone island noted within the humeral head The soft tissue structures are unremarkable. Normal visualized pulmonary apex. RAD/Shoulder min 2 Views IMPRESSION: Normal x-ray examination of the shoulder. Electronically Signed: Reza Pulido MD at 20:28 EST , Service support ,
--- NOTE | 2019-01-13 20:39 | ED.DCSUM_ITS ---
- ER Visit Summary Date of Service: 01/13/19 Chief Complaint: Fall History of Present Illness: The patient is a 48 M who states that yesterday he was getting up into the attic when he fell approximately 9 feet. He hit the back of his head going through the car out of the ceiling. He also struck his face and eventually landed believes on his back. He did note a loss of consciousness. He notes limited range of motion of the left shoulder particularly bringing the arm forward and only gets about 25 degrees before pain limits he notes that abrasion to the inner lower lip. He does note light sensitivity nausea and headache. Notes pain in the left anterior mid axillary chest and right posterior ribs as well as a contusion to the right scalp. Physical Examination: Afebrile vital signs are stable Gen: Well-nourished well-developed Head: Normocephalic small contusion to the right parietal subdural scalp Eyes: Perrl EOMI ENT: TMs clear no rhinorrhea moist mucous membranes there is a small contusion in her lower right lip no dental trauma Neck: Supple no lymphadenopathy no JVD palpation particularly on the left trapezius muscles CVS: Regular rate rhythm no murmurs normal S1-S2 Respiratory: No distress clear to auscultation bilaterally tender in the left anterior chest in the right posterior chest Abdomen: Soft nontender nondistended normal bowel sounds no masses Back: Nontender Extremity: Range of motion to the left shoulder Skin: Normal color no rash Neuro: alert orientated ?3 CN II-XII intact normal strength sensation reflexes gait cerebellar Psych: Normal affect normal mood Test Results: Shoulder were negative. CT the brain and chest were also negative. Emergency Department Course and Treatment: Patient will be discharged home with supportive care return if worsening or concerns Impression: 1. Concussion with loss of conscious 2. Left shoulder muscle strain 3. Chest wall contusion 4. Scalp contusion This note was generated with [employer] dictation software. It may contain incorrect words, spelling, and punctuation that were not noted in review of the chart prior to signing ED Disposition - Plan for ED Patient: Disposition: Home or Assisted Living Instructions: Chest Wall Contusion, HEAD INJURY, No Wake-Up (Adult), Shoulder Sprain Prescriptions: Hydrocodone Bitart/Apap 5-325 [[place] 5MG-325MG] 1 tab PO Q6H PRN PRN 3 Days #12 tab PRN Reason: Pain Prescription Printed Ondansetron [Zofran Odt] 4 mg PO Q8H PRN PRN #10 tab PRN Reason: Nausea Prescription Printed Referrals: Gerry Atkins MD [Primary Care Provider] - 10-14 Days if not better
[2019-01-13 20:57] VITALS: BP 150/100; PULSE 72; RESP 18; O2SAT 96
== END 2019-01-13 20:58 | disposition home or self-care (01) ==
PROVIDERS: Emergency Provider Emergency Medicine; Family Provider Family Medicine; PCP Family Medicine
DX: S06.0X1A Concussion with loss of consciousness of 30 minutes or less, initial encounter (principal); S46.912A Strain of unspecified muscle, fascia and tendon at shoulder and upper arm level, left arm, initial encounter; S00.03XA Contusion of scalp, initial encounter; S00.531A Contusion of lip, initial encounter; S20.219A Contusion of unspecified front wall of thorax, initial encounter; W17.89XA Other fall from one level to another, initial encounter; Y93.9 Activity, unspecified; Y92.008 Other place in unspecified non-institutional (private) residence as the place of occurrence of the external cause; Y99.9 Unspecified external cause status; I10 Essential (primary) hypertension; Z79.899 Other long term (current) drug therapy; Z87.891 Personal history of nicotine dependence
CPT/HCPCS: 70450; 71250; 72125; 73030; 99282